=== PATIENT | female | born 1965 | race African-American/Black ===

== ENCOUNTER 2016-06-04 13:45 | Emergency (ER) | payer MEDICAID ==
[~2016-06-04] VITALS: Ht 167.6 cm; Wt 90.0 kg
[2016-06-04 20:07] VITALS: BP 134/72
== END 2016-06-04 20:15 | disposition home or self-care (01) ==
LOC: ER 14:53
DX: K42.9 Umbilical hernia without obstruction or gangrene (principal)
CPT/HCPCS: 99283

== ENCOUNTER 2016-06-27 11:51 | Emergency (ER) | payer MEDICAID ==
[~2016-06-27] VITALS: Ht 162.6 cm; Wt 60.0 kg
[2016-06-27] MEDS ORDERED: KETOROLAC 60MG/2ML VIAL IM ONE (12:45)
[2016-06-27] MEDS ORDERED: ONDANSETRON 4MG ODT PO ONE (12:45)
[2016-06-27 13:01] LABS: CLARITY URINE CLEAR (CLEAR); COLOR URINE YELLOW (YELLOW); GLUCOSE URINE NEGATIVE (NEGATIVE); KETONES URINE NEGATIVE (NEGATIVE); LEUKOCYTE ESTERASE URINE 1+ (NEGATIVE); NITRITE URINE NEGATIVE (NEGATIVE); OCCULT BLOOD URINE NEGATIVE (NEGATIVE); PH URINE 5.5 (4.5-8.0); PROTEIN URINE NEGATIVE (NEGATIVE); SPECIFIC GRAVITY URINE 1.019 (1.005-1.030)
[2016-06-27 13:08] LABS: BACTERIA URINE 1+; RBC URINE 0-2 /hpf (0-2); SQUAMOUS EPITHELIAL CELL URINE 2+ /lpf (RARE/1+)
[2016-06-27 14:42] VITALS: BP 134/88
== END 2016-06-27 14:43 | disposition home or self-care (01) ==
LOC: ER 12:01
DX: K42.9 Umbilical hernia without obstruction or gangrene (principal); N39.0 Urinary tract infection, site not specified
CPT/HCPCS: 81001; 81025; 96372; 99283; J1885; Q0162

== ENCOUNTER 2016-07-10 09:57 | Emergency (ER) | payer MEDICAID ==
[~2016-07-10] VITALS: Ht 182.9 cm; Wt 61.0 kg
[2016-07-10 10:17] VITALS: BP 100/66
== END 2016-07-10 15:18 | disposition left against medical advice (07) ==
LOC: ER 15:01
DX: M54.9 Dorsalgia, unspecified (principal); Z53.21 Procedure and treatment not carried out due to patient leaving prior to being seen by health care provider

== ENCOUNTER 2016-07-11 17:15 | Emergency (ER) | payer MEDICAID ==
[~2016-07-11] VITALS: Ht 182.9 cm; Wt 59.0 kg
[2016-07-11] MEDS ORDERED: IBUPROFEN 600MG TABLET PO ONE (18:45)
[2016-07-11 18:53] VITALS: BP 108/62
== END 2016-07-11 20:28 | disposition home or self-care (01) ==
LOC: ER 19:22
DX: S29.012A Strain of muscle and tendon of back wall of thorax, initial encounter (principal); F17.200 Nicotine dependence, unspecified, uncomplicated; X50.0XXA Overexertion from strenuous movement or load, initial encounter; Y93.89 Activity, other specified; Y99.8 Other external cause status; Y92.89 Other specified places as the place of occurrence of the external cause
CPT/HCPCS: 99282

== ENCOUNTER 2016-07-25 08:26 | Emergency (ER) | payer MEDICAID ==
[~2016-07-25] VITALS: Ht 175.3 cm; Wt 59.0 kg
[2016-07-25 08:36] VITALS: BP 120/77
[2016-07-25] MEDS ORDERED: TETANUS, DIPHTHERIA, PERTUSSIS VAC/PF 0.5ML (>7YR OLD) IM ONE (10:15)
== END 2016-07-25 10:47 | disposition home or self-care (01) ==
LOC: ER 10:27
DX: L03.211 Cellulitis of face (principal); L02.01 Cutaneous abscess of face; F17.210 Nicotine dependence, cigarettes, uncomplicated
CPT/HCPCS: 90471; 90715; 99283

== ENCOUNTER 2016-08-27 12:53 | Emergency (ER) | payer MEDICAID ==
[~2016-08-27] VITALS: Ht 167.6 cm; Wt 59.0 kg
[2016-08-27 12:58] VITALS: BP 140/71
== END 2016-08-27 18:05 | disposition left against medical advice (07) ==
LOC: ER 17:41
DX: M54.89 Other dorsalgia (principal); Z53.21 Procedure and treatment not carried out due to patient leaving prior to being seen by health care provider

== ENCOUNTER 2016-08-28 11:11 | Emergency (ER) | payer MEDICAID ==
[~2016-08-28] VITALS: Ht 182.9 cm; Wt 60.0 kg
[2016-08-28 12:26] VITALS: BP 100/58
[2016-08-28] MEDS ORDERED: IBUPROFEN 600MG TABLET PO ONE (12:30)
== END 2016-08-28 12:33 | disposition home or self-care (01) ==
LOC: ER 11:12
DX: S39.012A Strain of muscle, fascia and tendon of lower back, initial encounter (principal); X58.XXXA Exposure to other specified factors, initial encounter; Y93.89 Activity, other specified; Y92.89 Other specified places as the place of occurrence of the external cause; Y99.8 Other external cause status
CPT/HCPCS: 99282; 99283

== ENCOUNTER 2016-09-11 08:45 | Emergency (ER) | payer MEDICAID ==
[~2016-09-11] VITALS: Ht 182.9 cm; Wt 59.0 kg
[2016-09-11] MEDS ORDERED: DIPHENHYDRAMINE 25MG CAPSULE PO ONE (10:00)
[2016-09-11 11:10] VITALS: BP 105/70
== END 2016-09-11 11:24 | disposition home or self-care (01) ==
LOC: ER 08:55
DX: L29.9 Pruritus, unspecified (principal); F17.200 Nicotine dependence, unspecified, uncomplicated; F12.10 Cannabis abuse, uncomplicated
CPT/HCPCS: 99282; Q0163

== ENCOUNTER 2016-09-26 20:03 | Emergency (ER) | payer MEDICAID ==
[~2016-09-26] VITALS: Ht 167.6 cm; Wt 59.0 kg
[2016-09-26 23:46] LABS: CLARITY URINE CLEAR (CLEAR); COLOR URINE YELLOW (YELLOW); KETONES URINE NEGATIVE (NEGATIVE); LEUKOCYTE ESTERASE URINE 1+ (NEGATIVE); NITRITE URINE NEGATIVE (NEGATIVE); OCCULT BLOOD URINE TRACE (NEGATIVE); PROTEIN URINE NEGATIVE (NEGATIVE); SPECIFIC GRAVITY URINE 1.015 (1.005-1.030); UROBILINOGEN URINE 0.2 E.U./dL (0.2-1.0)
[2016-09-26 23:54] LABS: EOSINOPHILS % 3.4 % (0.0-5.0); HEMATOCRIT. 31.3 % (36.0-48.0); LYMPHOCYTES % 24.5 % (20.0-50.0); MEAN CORPUSCULAR HEMOGLOBIN 25.5 pg (28.0-32.0); MEAN CORPUSCULAR VOLUME 79.7 fL (81.0-99.0); MEAN PLATELET VOLUME 6.7 fl (7.4-10.4); MONOCYTES % 8.2 % (2.0-8.0); NEUTROPHILS % 62.9 % (40.0-76.0); PLATELET 246 x1000/uL (130-400); RED BLOOD CELL COUNT 3.93 mill/uL (4.2-5.4); RED CELL DISTRIBUTION WIDTH 18.5 % (11.6-14.6)
[2016-09-27] LABS: CHLORIDE 110 mEq/L (98-107)
[2016-09-27 00:08] LABS: CARBON DIOXIDE 22 mEq/L (21-32)
[2016-09-27 00:45] VITALS: BP 120/82
== END 2016-09-27 00:45 | disposition home or self-care (01) ==
LOC: ER 20:12
DX: K42.9 Umbilical hernia without obstruction or gangrene (principal); F17.200 Nicotine dependence, unspecified, uncomplicated
CPT/HCPCS: 36415; 80053; 81001; 85025; 99284

== ENCOUNTER 2016-10-13 13:33 | Emergency (ER) | payer MEDICAID ==
[~2016-10-13] VITALS: Ht 165.1 cm; Wt 60.0 kg
[2016-10-13 13:44] VITALS: BP 100/66
== END 2016-10-13 18:15 | disposition left against medical advice (07) ==
LOC: ER 17:58
DX: Z53.21 Procedure and treatment not carried out due to patient leaving prior to being seen by health care provider (principal)

== ENCOUNTER 2016-10-15 14:20 | Emergency (ER) | payer MEDICAID ==
[~2016-10-15] VITALS: Ht 182.9 cm; Wt 59.0 kg
[2016-10-15] MEDS ORDERED: ACETAMINOPHEN 325MG TABLET PO ONE (16:15)
[2016-10-15 17:04] VITALS: BP 122/76
== END 2016-10-15 18:07 | disposition home or self-care (01) ==
LOC: ER 15:25
DX: K42.9 Umbilical hernia without obstruction or gangrene (principal); I10 Essential (primary) hypertension; F17.210 Nicotine dependence, cigarettes, uncomplicated; F12.10 Cannabis abuse, uncomplicated
CPT/HCPCS: 99282

== ENCOUNTER 2016-10-28 17:14 | Emergency (ER) | payer MEDICAID ==
[~2016-10-28] VITALS: Ht 175.3 cm; Wt 73.0 kg
[2016-10-28] MEDS ORDERED: KETOROLAC 60MG/2ML VIAL IM STA (19:58)
[2016-10-28 20:51] LABS: BASOPHILS % 0.7 % (0.0-2.0); EOSINOPHILS % 0.9 % (0.0-5.0); HEMOGLOBIN. 11.7 g/dL (12.0-16.0); LYMPHOCYTES % 13.5 % (20.0-50.0); MEAN CORPUSCULAR HEMOGLOBIN 25.5 pg (28.0-32.0); MEAN CORPUSCULAR VOLUME 80.4 fL (81.0-99.0); MEAN PLATELET VOLUME 7.1 fl (7.4-10.4); NEUTROPHILS % 78.9 % (40.0-76.0); PLATELET 327 x1000/uL (130-400); RED CELL DISTRIBUTION WIDTH 17.6 % (11.6-14.6)
[2016-10-28 20:59] LABS: CHLORIDE 105 mEq/L (98-107)
[2016-10-28 21:02] LABS: CARBON DIOXIDE 25 mEq/L (21-32)
[2016-10-28 21:05] LABS: CLARITY URINE CLOUDY (CLEAR); COLOR URINE ORANGE (YELLOW); GLUCOSE URINE NEGATIVE (NEGATIVE); KETONES URINE 1+ (NEGATIVE); LEUKOCYTE ESTERASE URINE 1+ (NEGATIVE); NITRITE URINE NEGATIVE (NEGATIVE); OCCULT BLOOD URINE 3+ (NEGATIVE); PH URINE 5.5 (4.5-8.0); PROTEIN URINE 1+ (NEGATIVE); SPECIFIC GRAVITY URINE 1.023 (1.005-1.030)
[2016-10-28 21:08] LABS: HCG SCREEN NEGATIVE
[2016-10-28 21:17] LABS: *AMPHETAMINES SCREEN URINE NEGATIVE (NEGATIVE); *BARBITURATES SCREEN URINE NEGATIVE (NEGATIVE); *BENZODIAZEPINES SCREEN URINE NEGATIVE (NEGATIVE); *COCAINE SCREEN URINE PRESUMTIVE POSITIVE (NEGATIVE); CANNABINOID URINE SCREEN NEGATIVE (NEGATIVE); METHADONE URINE SCREEN NEGATIVE (NEGATIVE); OPIATES URINE SCREEN NEGATIVE (NEGATIVE); PHENCYCLIDINE URINE SCREEN NEGATIVE (NEGATIVE)
[2016-10-28 21:44] VITALS: BP 122/87
== END 2016-10-28 21:52 | disposition home or self-care (01) ==
LOC: ER 17:26
DX: N39.0 Urinary tract infection, site not specified (principal)
CPT/HCPCS: 36415; 80053; 80305; 81001; 83690; 84703; 85025; 96372; 99284; J1885

== ENCOUNTER 2016-11-06 19:23 | Emergency (ER) | payer MEDICAID ==
[~2016-11-06] VITALS: Ht 172.7 cm; Wt 68.0 kg
[2016-11-06 19:50] VITALS: BP 126/84
== END 2016-11-06 23:40 | disposition left against medical advice (07) ==
LOC: ER 19:38
DX: R10.9 Unspecified abdominal pain (principal); Z53.21 Procedure and treatment not carried out due to patient leaving prior to being seen by health care provider

== ENCOUNTER 2016-11-30 13:41 | Emergency (ER) | payer MEDICAID ==
[~2016-11-30] VITALS: Ht 182.9 cm; Wt 61.0 kg
[2016-11-30 14:06] VITALS: BP 111/74
== END 2016-11-30 17:14 | disposition left against medical advice (07) ==
LOC: ER 13:41
DX: M54.89 Other dorsalgia (principal); Z53.21 Procedure and treatment not carried out due to patient leaving prior to being seen by health care provider

== ENCOUNTER 2016-12-09 14:50 | Emergency (ER) | payer MEDICAID ==
[~2016-12-09] VITALS: Ht 162.6 cm; Wt 59.0 kg
[2016-12-09 14:58] VITALS: BP 109/70
== END 2016-12-09 17:46 | disposition left against medical advice (07) ==
LOC: ER 16:01
DX: M54.9 Dorsalgia, unspecified (principal); Z53.21 Procedure and treatment not carried out due to patient leaving prior to being seen by health care provider

== ENCOUNTER 2016-12-10 12:09 | Emergency (ER) | payer MEDICAID ==
[~2016-12-10] VITALS: Ht 172.7 cm; Wt 60.0 kg
[2016-12-10] MEDS ORDERED: MORPHINE SULFATE 4 MG/ML CPJ (NOT FOR IM USE) IV STA (16:43)
[2016-12-10] MEDS ORDERED: ONDANSETRON HCL 4MG/2ML VIAL IV STA (16:43)
[2016-12-10] MEDS ORDERED: SODIUM CHLORIDE 0.9% 1,000 ML IV ONE (16:54)
[2016-12-10] MEDS ORDERED: MORPHINE SULFATE 2 MG/ML CPJ (NOT FOR IM USE) IV ONE (17:00)
[2016-12-10 17:20] LABS: BASOPHILS % 0.7 % (0.0-2.0); EOSINOPHILS % 2.5 % (0.0-5.0); HEMATOCRIT. 37.8 % (36.0-48.0); HEMOGLOBIN. 12.2 g/dL (12.0-16.0); LYMPHOCYTES % 22.6 % (20.0-50.0); MEAN CORPUSCULAR HEMOGLOBIN 26.3 pg (28.0-32.0); MEAN CORPUSCULAR VOLUME 81.3 fL (81.0-99.0); MEAN PLATELET VOLUME 7.1 fl (7.4-10.4); NEUTROPHILS % 66.2 % (40.0-76.0); PLATELET 299 x1000/uL (130-400); RED BLOOD CELL COUNT 4.65 mill/uL (4.2-5.4); RED CELL DISTRIBUTION WIDTH 18.6 % (11.6-14.6)
[2016-12-10 17:26] LABS: CHLORIDE 104 mEq/L (98-107)
[2016-12-10 17:29] LABS: CARBON DIOXIDE 26 mEq/L (21-32)
[2016-12-10 17:31] LABS: CLARITY URINE CLEAR (CLEAR); COLOR URINE YELLOW (YELLOW); GLUCOSE URINE NEGATIVE (NEGATIVE); KETONES URINE TRACE (NEGATIVE); LEUKOCYTE ESTERASE URINE 1+ (NEGATIVE); NITRITE URINE NEGATIVE (NEGATIVE); OCCULT BLOOD URINE NEGATIVE (NEGATIVE); PROTEIN URINE NEGATIVE (NEGATIVE); SPECIFIC GRAVITY URINE 1.018 (1.005-1.030)
[2016-12-10 17:32] LABS: ETHANOL BLOOD < 10 mg/dL
[2016-12-10 17:45] LABS: *AMPHETAMINES SCREEN URINE NEGATIVE (NEGATIVE); *BARBITURATES SCREEN URINE NEGATIVE (NEGATIVE); *BENZODIAZEPINES SCREEN URINE NEGATIVE (NEGATIVE); *COCAINE SCREEN URINE PRESUMTIVE POSITIVE (NEGATIVE); CANNABINOID URINE SCREEN NEGATIVE (NEGATIVE); METHADONE URINE SCREEN NEGATIVE (NEGATIVE); OPIATES URINE SCREEN NEGATIVE (NEGATIVE); PHENCYCLIDINE URINE SCREEN NEGATIVE (NEGATIVE)
[2016-12-10] MEDS ORDERED: MORPHINE SULFATE 4 MG/ML CPJ (NOT FOR IM USE) IV ONE (18:27)
[2016-12-10 19:30] VITALS: BP 122/87
== END 2016-12-10 20:00 | disposition home or self-care (01) ==
LOC: ER 12:27
DX: K42.9 Umbilical hernia without obstruction or gangrene (principal); N39.0 Urinary tract infection, site not specified
CPT/HCPCS: 36415; 80053; 80305; 81001; 81025; 83605; 83690; 85025; 96361; 96374; 96375; 96376; 99285; G0482; J2270; J2405; J7030; Z7610

== ENCOUNTER 2016-12-22 09:57 | Emergency (ER) | payer MEDICAID ==
[~2016-12-22] VITALS: Ht 180.3 cm; Wt 70.0 kg
[2016-12-22] MEDS ORDERED: ACETAMINOPHEN WITH CODEINE 300/30MG TABLET PO ONE (13:15)
[2016-12-22] MEDS ORDERED: IBUPROFEN 800MG TABLET PO ONE (13:15)
[2016-12-22 13:20] VITALS: BP 114/81
== END 2016-12-22 13:43 | disposition home or self-care (01) ==
LOC: ER 10:29
DX: M54.9 Dorsalgia, unspecified (principal); M25.562 Pain in left knee; F17.210 Nicotine dependence, cigarettes, uncomplicated
CPT/HCPCS: 99283

== ENCOUNTER 2017-01-22 12:57 | Emergency (ER) | payer MEDICAID ==
[~2017-01-22] VITALS: Ht 182.9 cm; Wt 59.0 kg
[2017-01-22] MEDS ORDERED: METHOCARBAMOL 500MG TABLET PO ONE (13:30)
[2017-01-22] MEDS ORDERED: IBUPROFEN 600MG TABLET PO ONE (13:30)
[2017-01-22 14:10] VITALS: BP 105/72
== END 2017-01-22 14:19 | disposition home or self-care (01) ==
LOC: ER 13:30
DX: S16.1XXA Strain of muscle, fascia and tendon at neck level, initial encounter (principal); F17.200 Nicotine dependence, unspecified, uncomplicated; F12.10 Cannabis abuse, uncomplicated; X58.XXXA Exposure to other specified factors, initial encounter; Y93.89 Activity, other specified; Y92.89 Other specified places as the place of occurrence of the external cause; Y99.8 Other external cause status
CPT/HCPCS: 99283

== ENCOUNTER 2017-04-03 12:13 | Emergency (ER) | payer MEDICAID ==
[~2017-04-03] VITALS: Ht 190.5 cm; Wt 63.0 kg
[2017-04-03 12:40] VITALS: BP 92/64
== END 2017-04-03 15:46 | disposition home or self-care (01) ==
LOC: ER 15:32
DX: J06.9 Acute upper respiratory infection, unspecified (principal); F12.10 Cannabis abuse, uncomplicated; J45.909 Unspecified asthma, uncomplicated; F17.200 Nicotine dependence, unspecified, uncomplicated
CPT/HCPCS: 99283

== ENCOUNTER 2017-05-18 10:04 | Emergency (ER) | payer MEDICAID ==
[~2017-05-18] VITALS: Ht 182.9 cm; Wt 68.0 kg
[2017-05-18] MEDS ORDERED: KETOROLAC 30MG/ML VIAL IM ONE (10:45)
[2017-05-18 11:32] VITALS: BP 100/67
== END 2017-05-18 12:22 | disposition home or self-care (01) ==
LOC: ER 10:04
DX: M79.605 Pain in left leg (principal); W01.0XXA Fall on same level from slipping, tripping and stumbling without subsequent striking against object, initial encounter; Y93.9 Activity, unspecified; Y92.9 Unspecified place or not applicable; F12.90 Cannabis use, unspecified, uncomplicated
CPT/HCPCS: 72170; 73552; 81025; 96372; 99284; J1885

== ENCOUNTER 2017-06-04 12:45 | Emergency (ER) | payer MEDICAID ==
[~2017-06-04] VITALS: Ht 182.9 cm; Wt 61.0 kg
[2017-06-04 12:51] VITALS: BP 100/59
== END 2017-06-04 17:37 | disposition left against medical advice (07) ==
LOC: ER 13:12
DX: R07.9 Chest pain, unspecified (principal); Z53.21 Procedure and treatment not carried out due to patient leaving prior to being seen by health care provider
CPT/HCPCS: 93005

== ENCOUNTER 2017-06-16 12:51 | Emergency (ER) | payer MEDICAID ==
[~2017-06-16] VITALS: Ht 182.9 cm; Wt 60.0 kg
[2017-06-16] MEDS ORDERED: FLUORESCEIN SODIUM 1MG/STRIP OP ONE (13:15)
[2017-06-16] MEDS ORDERED: TETRACAINE 0.5% OPHTH DROPS 4ML OP ONE (13:15)
[2017-06-16 13:34] VITALS: BP 106/69
== END 2017-06-16 14:01 | disposition left against medical advice (07) ==
LOC: ER 13:43
DX: H57.12 Ocular pain, left eye (principal); H57.8 Other specified disorders of eye and adnexa; F17.200 Nicotine dependence, unspecified, uncomplicated; F12.10 Cannabis abuse, uncomplicated; Z98.890 Other specified postprocedural states
CPT/HCPCS: 99283; Z7610

== ENCOUNTER 2017-08-04 10:37 | Emergency (ER) | payer MEDICAID ==
[~2017-08-04] VITALS: Ht 167.6 cm; Wt 59.0 kg
[2017-08-04 11:00] VITALS: BP 94/64
== END 2017-08-04 12:00 | disposition left against medical advice (07) ==
LOC: ER 11:39
DX: R51 Headache (principal)
CPT/HCPCS: 99281

== ENCOUNTER 2017-08-11 13:09 | Emergency (ER) | payer MEDICAID ==
[~2017-08-11] VITALS: Ht 182.9 cm; Wt 54.0 kg
[2017-08-11 13:43] VITALS: BP 109/80
== END 2017-08-11 22:00 | disposition left against medical advice (07) ==
LOC: ER 15:27
DX: R51 Headache (principal); Z53.21 Procedure and treatment not carried out due to patient leaving prior to being seen by health care provider

== ENCOUNTER 2017-08-13 13:09 | Emergency (ER) | payer MEDICAID ==
[~2017-08-13] VITALS: Ht 182.9 cm; Wt 59.0 kg
[2017-08-13 14:15] LABS: BASOPHILS % 0.9 % (0.0-2.0); EOSINOPHILS % 2.6 % (0.0-5.0); HEMATOCRIT. 33.6 % (36.0-48.0); HEMOGLOBIN. 10.8 g/dL (12.0-16.0); LYMPHOCYTES % 20.9 % (20.0-50.0); MEAN CORPUSCULAR HEMOGLOBIN 26.7 pg (28.0-32.0); MEAN CORPUSCULAR VOLUME 83.2 fL (81.0-99.0); MEAN PLATELET VOLUME 7.1 fl (7.4-10.4); MONOCYTES % 8.2 % (2.0-8.0); NEUTROPHILS % 67.4 % (40.0-76.0); PLATELET 281 x1000/uL (130-400); RED BLOOD CELL COUNT 4.04 mill/uL (4.2-5.4); RED CELL DISTRIBUTION WIDTH 17.2 % (11.6-14.6)
[2017-08-13] MEDS ORDERED: DIPHENHYDRAMINE 50MG/ML VIAL IV ONE (14:15)
[2017-08-13] MEDS ORDERED: KETOROLAC 30MG/ML VIAL IV ONE (14:15)
[2017-08-13] MEDS ORDERED: METOCLOPRAMIDE HCL 10MG/2ML VIAL IV ONE (14:15)
[2017-08-13 14:21] LABS: CHLORIDE 107 mEq/L (98-107)
[2017-08-13 14:22] LABS: INR 1.1; PARTIAL THROMBOPLASTIN TIME 23.5 sec (23.4-31.0); PROTHROMBIN TIME 11.4 sec (9.4-11.6)
[2017-08-13 16:00] VITALS: BP 129/61
== END 2017-08-13 16:50 | disposition home or self-care (01) ==
LOC: ER 13:34
DX: G43.909 Migraine, unspecified, not intractable, without status migrainosus (principal); F12.10 Cannabis abuse, uncomplicated; F17.200 Nicotine dependence, unspecified, uncomplicated; F41.9 Anxiety disorder, unspecified; R07.89 Other chest pain
CPT/HCPCS: 36415; 71045; 80053; 84484; 85025; 85610; 85730; 93005; 96374; 96375; 99285; J1200; J1885; J2765

== ENCOUNTER 2017-09-27 09:07 | Emergency (ER) | payer MEDICAID ==
[~2017-09-27] VITALS: Ht 172.7 cm; Wt 69.0 kg
[2017-09-27 09:12] VITALS: BP 178/92
== END 2017-09-27 13:01 | disposition left against medical advice (07) ==
LOC: ER 09:28
DX: M79.662 Pain in left lower leg (principal); Z53.21 Procedure and treatment not carried out due to patient leaving prior to being seen by health care provider
CPT/HCPCS: J7040; Z7610

== ENCOUNTER 2017-10-06 11:04 | Emergency (ER) | payer MEDICAID ==
[~2017-10-06] VITALS: Ht 182.9 cm; Wt 62.0 kg
[2017-10-06 11:19] VITALS: BP 103/61
== END 2017-10-06 15:10 | disposition left against medical advice (07) ==
LOC: ER 11:04
DX: G43.909 Migraine, unspecified, not intractable, without status migrainosus (principal)
CPT/HCPCS: 99281

== ENCOUNTER 2017-11-02 09:24 | Emergency (ER) | payer MEDICAID ==
[~2017-11-02] VITALS: Ht 172.7 cm; Wt 72.0 kg
[2017-11-02 10:09] VITALS: BP 113/84
[2017-11-02] MEDS ORDERED: IBUPROFEN 800MG TABLET PO ONE (10:15)
== END 2017-11-02 11:11 | disposition home or self-care (01) ==
LOC: ER 10:04
DX: S83.8X2A Sprain of other specified parts of left knee, initial encounter (principal); R51 Headache; F17.200 Nicotine dependence, unspecified, uncomplicated; F12.10 Cannabis abuse, uncomplicated; W01.0XXA Fall on same level from slipping, tripping and stumbling without subsequent striking against object, initial encounter; Y93.89 Activity, other specified; Y92.89 Other specified places as the place of occurrence of the external cause; Y99.8 Other external cause status; Z98.890 Other specified postprocedural states
CPT/HCPCS: 93971; 99284

== ENCOUNTER 2017-12-01 15:51 | Emergency (ER) | payer MEDICAID ==
[~2017-12-01] VITALS: Ht 182.9 cm; Wt 59.0 kg
[2017-12-01 15:57] VITALS: BP 103/74
== END 2017-12-01 19:27 | disposition left against medical advice (07) ==
LOC: ER 15:51
DX: M79.605 Pain in left leg (principal)
CPT/HCPCS: 99281

== ENCOUNTER 2017-12-02 12:09 | Emergency (ER) | payer MEDICAID ==
[~2017-12-02] VITALS: Ht 182.9 cm; Wt 59.0 kg
[2017-12-02 12:26] VITALS: BP 104/72
== END 2017-12-02 15:01 | disposition left against medical advice (07) ==
LOC: ER 12:09
DX: M79.602 Pain in left arm (principal); Z53.21 Procedure and treatment not carried out due to patient leaving prior to being seen by health care provider

== ENCOUNTER 2017-12-03 14:06 | Emergency (ER) | payer MEDICAID ==
[~2017-12-03] VITALS: Ht 182.9 cm; Wt 73.1 kg
[2017-12-03 14:48] VITALS: BP 117/87
== END 2017-12-03 22:49 | disposition left against medical advice (07) ==
LOC: ER 14:06
DX: M79.652 Pain in left thigh (principal); R51 Headache; F12.10 Cannabis abuse, uncomplicated; Z98.890 Other specified postprocedural states
CPT/HCPCS: 99281

== ENCOUNTER 2017-12-04 09:25 | Emergency (ER) | payer MEDICAID ==
[~2017-12-04] VITALS: Ht 182.9 cm; Wt 59.0 kg
[2017-12-04] MEDS ORDERED: IBUPROFEN 800MG TABLET PO ONE (10:15)
[2017-12-04 10:24] VITALS: BP 114/70
== END 2017-12-04 18:54 | disposition home or self-care (01) ==
LOC: ER 09:25
DX: R51 Headache (principal); M79.1 Myalgia; M79.605 Pain in left leg; F17.200 Nicotine dependence, unspecified, uncomplicated; F12.10 Cannabis abuse, uncomplicated; Z98.890 Other specified postprocedural states
CPT/HCPCS: 99282

== ENCOUNTER 2017-12-17 10:32 | Emergency (ER) | payer MEDICAID ==
[~2017-12-17] VITALS: Ht 182.9 cm; Wt 61.0 kg
[2017-12-17 10:37] VITALS: BP 99/61
== END 2017-12-17 11:43 | disposition home or self-care (01) ==
LOC: ER 10:47
DX: M79.1 Myalgia (principal); M79.652 Pain in left thigh; F12.10 Cannabis abuse, uncomplicated; Z76.0 Encounter for issue of repeat prescription; Z98.890 Other specified postprocedural states
CPT/HCPCS: 99282; Z7610

== ENCOUNTER 2017-12-29 10:26 | Emergency (ER) | payer MEDICAID ==
[~2017-12-29] VITALS: Ht 182.9 cm; Wt 59.0 kg
[2017-12-29] MEDS ORDERED: IBUPROFEN 800MG TABLET PO ONE (12:00)
[2017-12-29 12:28] VITALS: BP 114/86
== END 2017-12-29 12:29 | disposition home or self-care (01) ==
LOC: ER 10:26
DX: G43.909 Migraine, unspecified, not intractable, without status migrainosus (principal); F17.200 Nicotine dependence, unspecified, uncomplicated; F12.10 Cannabis abuse, uncomplicated
CPT/HCPCS: 99282

== ENCOUNTER 2018-08-29 07:38 | Emergency (ER) | payer MEDICAID ==
[~2018-08-29] VITALS: Ht 182.9 cm; Wt 59.0 kg
[2018-08-29] MEDS ORDERED: IBUPROFEN 600MG TABLET PO ONE (08:30)
[2018-08-29 08:53] VITALS: BP 112/68
== END 2018-08-29 08:54 | disposition home or self-care (01) ==
LOC: ER 07:38
DX: G43.909 Migraine, unspecified, not intractable, without status migrainosus (principal); F17.210 Nicotine dependence, cigarettes, uncomplicated; F12.10 Cannabis abuse, uncomplicated
CPT/HCPCS: 99282

== ENCOUNTER 2018-09-23 10:03 | Emergency (ER) | payer MEDICAID ==
[~2018-09-23] VITALS: Ht 182.9 cm; Wt 59.0 kg
[2018-09-23] MEDS ORDERED: SODIUM CHLORIDE 0.9% 1,000 ML IV ONE (11:54)
[2018-09-23] MEDS ORDERED: KETOROLAC 30MG/ML VIAL IV ONE (12:15)
[2018-09-23 12:21] LABS: EOSINOPHILS % 4.4 % (0.0-5.0); HEMATOCRIT. 41.9 % (36.0-48.0); HEMOGLOBIN. 13.8 g/dL (12.0-16.0); LYMPHOCYTES % 16.9 % (20.0-50.0); MEAN CORPUSCULAR HEMOGLOBIN 29.3 pg (28.0-32.0); MEAN PLATELET VOLUME 7.4 fl (7.4-10.4); MONOCYTES % 8.1 % (2.0-8.0); NEUTROPHILS % 69.6 % (40.0-76.0); PLATELET 323 x1000/uL (130-400); RED BLOOD CELL COUNT 4.71 mill/uL (4.2-5.4); RED CELL DISTRIBUTION WIDTH 15.5 % (11.6-14.6)
[2018-09-23 12:23] LABS: CHLORIDE 106 mEq/L (98-107)
[2018-09-23 12:30] LABS: INR 1.1; PROTHROMBIN TIME 11.1 sec (9.6-11.0)
[2018-09-23 14:53] LABS: CLARITY URINE CLEAR (CLEAR); COLOR URINE DARK YELLOW (YELLOW); KETONES URINE TRACE (NEGATIVE); LEUKOCYTE ESTERASE URINE 1+ (NEGATIVE); NITRITE URINE NEGATIVE (NEGATIVE); OCCULT BLOOD URINE TRACE (NEGATIVE); PH URINE 5.5 (4.5-8.0); PROTEIN URINE TRACE (NEGATIVE); SPECIFIC GRAVITY URINE 1.029 (1.005-1.030)
[2018-09-23] MEDS ORDERED: TRAMADOL 50MG TABLET PO ONE (15:00)
[2018-09-23] MEDS ORDERED: CEFTRIAXONE 1 G PREMIX 50 ML IV ONE (15:00)
[2018-09-23 15:08] LABS: *AMPHETAMINES SCREEN URINE NEGATIVE (NEGATIVE); *BARBITURATES SCREEN URINE NEGATIVE (NEGATIVE); *BENZODIAZEPINES SCREEN URINE NEGATIVE (NEGATIVE)
[2018-09-23 15:09] LABS: *COCAINE SCREEN URINE PRESUMTIVE POSITIVE (NEGATIVE); METHADONE URINE SCREEN NEGATIVE (NEGATIVE); OPIATES URINE SCREEN NEGATIVE (NEGATIVE); PHENCYCLIDINE URINE SCREEN NEGATIVE (NEGATIVE)
[2018-09-23 15:10] LABS: CANNABINOID URINE SCREEN PRESUMTIVE POSITIVE (NEGATIVE)
[2018-09-23 17:00] VITALS: BP 112/63
== END 2018-09-23 17:18 | disposition home or self-care (01) ==
LOC: ER 10:22
DX: J06.9 Acute upper respiratory infection, unspecified (principal); N39.0 Urinary tract infection, site not specified; F14.10 Cocaine abuse, uncomplicated; F12.10 Cannabis abuse, uncomplicated; R10.11 Right upper quadrant pain; R03.0 Elevated blood-pressure reading, without diagnosis of hypertension; Z98.890 Other specified postprocedural states
CPT/HCPCS: 36415; 71045; 76705; 80053; 80305; 80320; 81003; 83690; 85025; 85610; 96365; 96375; 99284; J0696; J1885; J7030; Z7610; G0480

== ENCOUNTER 2019-01-28 09:56 | Emergency (ER) | payer MEDICAID ==
[~2019-01-28] VITALS: Ht 177.8 cm; Wt 90.0 kg
[2019-01-28] MEDS ORDERED: KETOROLAC 30MG/ML VIAL IM ONE (11:45)
[2019-01-28 12:31] LABS: CLARITY URINE CLOUDY (CLEAR); COLOR URINE DARK YELLOW (YELLOW); KETONES URINE TRACE (NEGATIVE); LEUKOCYTE ESTERASE URINE 1+ (NEGATIVE); NITRITE URINE NEGATIVE (NEGATIVE); OCCULT BLOOD URINE 3+ (NEGATIVE); PROTEIN URINE 1+ (NEGATIVE); SPECIFIC GRAVITY URINE 1.026 (1.005-1.030)
[2019-01-28 13:18] LABS: EOSINOPHILS % 4.5 % (0.0-5.0); HEMATOCRIT. 45.1 % (36.0-48.0); HEMOGLOBIN. 14.9 g/dL (12.0-16.0); LYMPHOCYTES % 27.1 % (20.0-50.0); MEAN CORPUSCULAR HEMOGLOBIN 29.9 pg (28.0-32.0); MEAN CORPUSCULAR VOLUME 90.1 fL (81.0-99.0); MEAN PLATELET VOLUME 7.1 fl (7.4-10.4); MONOCYTES % 11.5 % (2.0-8.0); NEUTROPHILS % 55.9 % (40.0-76.0); PLATELET 292 x1000/uL (130-400); RED CELL DISTRIBUTION WIDTH 15.5 % (11.6-14.6)
[2019-01-28 13:21] LABS: CHLORIDE 106 mEq/L (98-107)
[2019-01-28 15:30] VITALS: BP 122/78
== END 2019-01-28 15:30 | disposition home or self-care (01) ==
LOC: ER 10:05
DX: N39.0 Urinary tract infection, site not specified (principal); N63.0 Unspecified lump in unspecified breast; M51.26 Other intervertebral disc displacement, lumbar region
CPT/HCPCS: 36415; 71045; 72100; 74176; 80053; 81003; 83880; 84484; 85025; 87086; 93005; 96372; 99284; J1885; Z7610

== ENCOUNTER 2019-03-26 09:52 | Emergency (ER) | payer MEDICAID ==
[~2019-03-26] VITALS: Ht 177.8 cm; Wt 58.0 kg
[2019-03-26 12:09] VITALS: BP 112/93
== END 2019-03-26 13:11 | disposition left against medical advice (07) ==
LOC: ER 10:02
DX: M54.5 Low back pain (principal); Z53.21 Procedure and treatment not carried out due to patient leaving prior to being seen by health care provider
CPT/HCPCS: Z7610 ×3